=== PATIENT | female | born 1950 | race Caucasian/White ===

== ENCOUNTER 2017-01-21 12:57 | Inpatient (IN) ==
[2017-01-14 14:26] LABS: Basophils % 0.5 % (0.0-0.8); Eosinophils # 0.2 10*3/uL (0.0-0.87); Eosinophils % 2.4 % (0.00-10.9); Hematocrit 38.8 VOL% (35.7-47.0); Hemoglobin 13.9 GM/DL (12.0-16.0); Immature Granulocytes % 0.7 %; Immature Granulocytes Absolute 0.05 #; Lymphocytes # 2.2 10*3/uL (1.4-4.0); Mean Corpuscular HGB Conc 35.8 GM/DL (32-36); Mean Corpuscular Hemoglobin 29 PG (27-34); Mean Corpuscular Volume 81.9 FL (87-102); Mean Platelet Volume 9.5 FL (9.6-12.0); Monocytes # 0.5 10*3/uL (0.11-0.8); Monocytes % 6.7 % (1.7-12.7); Neutrophils # 4.5 10*3/uL (1.4-7.4); Neutrophils % 60.7 % (38.7-73.9); Platelet Count 190 T/CUMM (130-400); Red Blood Count 4.74 MC/CUMM (3.8-5.5); White Blood Count 7.4 T/CUMM (4-12)
[2017-01-14 15:22] LABS: Albumin 3.9 G/DL (3.4-5.0); Bilirubin,Direct 0.14 MG/DL (0.0-0.20); Bilirubin,Total 1.1 MG/DL (0.2-1.0); Calcium 9.1 MG/DL (8.5-10.1); Osmolality,Calculated 278.8 MOS/KG (273-304); Potassium 3.8 MMOL/L (3.5-5.1); Total Protein 7.2 G/DL (6.4-8.3)
[~2017-01-21 12:57] MED LIST: ASPIRIN 325 MG TABLET PO ONE; DIAZEPAM 5 MG TABLET PO ONE; MAGNESIUM SULF RIDER 2 GM in PREMIX 1 EACH IV PRN; POTASSIUM CHLORIDE RIDER 10 MEQ in PREMIX 1 EACH IV PRN; ceFAZolin 1,000 MG in SYRINGE 1 EACH IV ONE; diphenhydrAMINE CAP 50 MG CAPSULE PO ONE
[2017-01-21] MEDS ORDERED: diphenhydrAMINE CAP 25 MG CAPSULE PO ONE (13:00)
[2017-01-21 14:10] LABS: Basophils # 0.1 10*3/uL (0.0-0.2); Basophils % 0.6 % (0.0-0.8); Eosinophils # 0.2 10*3/uL (0.0-0.87); Eosinophils % 2.5 % (0.00-10.9); Hematocrit 40.5 VOL% (35.7-47.0); Hemoglobin 14.4 GM/DL (12.0-16.0); Immature Granulocytes % 0.6 %; Immature Granulocytes Absolute 0.05 #; Lymphocytes # 2.2 10*3/uL (1.4-4.0); Lymphocytes % 28.2 % (21.3-54.2); Mean Corpuscular HGB Conc 35.6 GM/DL (32-36); Mean Corpuscular Hemoglobin 29 PG (27-34); Mean Corpuscular Volume 81.8 FL (87-102); Mean Platelet Volume 9.6 FL (9.6-12.0); Monocytes # 0.6 10*3/uL (0.11-0.8); Neutrophils # 4.6 10*3/uL (1.4-7.4); Neutrophils % 60.1 % (38.7-73.9); Platelet Count 192 T/CUMM (130-400); Red Blood Count 4.95 MC/CUMM (3.8-5.5); Red Cell Distribution Width 13.2 % (9.3-17.3); White Blood Count 7.7 T/CUMM (4-12)
[2017-01-21 14:18] LABS: PT Patient Result 10.6 SECS
[2017-01-21 14:31] LABS: Calcium 9.2 MG/DL (8.5-10.1); Potassium 3.7 MMOL/L (3.5-5.1)
[2017-01-21] MEDS: SODIUM CHLORIDE 0.9% 1,000 ML IV SCH ×2 (15:00→22:06)
[2017-01-21] MEDS ORDERED: diphenhydrAMINE CAP 25 MG CAPSULE ONE (16:07)
[2017-01-21] MEDS ORDERED: DIAZEPAM 5 MG TABLET ONE (16:07)
[2017-01-21] MEDS ORDERED: ASPIRIN 325 MG TABLET ONE (16:07)
[2017-01-21] MEDS ORDERED: LIDOCAINE 1% 20 ML VIAL ONE (16:33)
[2017-01-21] MEDS ORDERED: HEPARIN/NACL 0.9% 2 UNITS/ML 500 ML IV ONE (16:33)
[2017-01-21] MEDS ORDERED: HYDROmorphone 2 MG/1 ML VIAL ONE (16:46)
[2017-01-21] MEDS ORDERED: MIDAZOLAM 2 MG/2 ML VIAL ONE (16:47)
[2017-01-21] MEDS ORDERED: LABETALOL 20 MG/4 ML SYRINGE IV ONE (17:19)
[2017-01-21] MEDS ORDERED: ONDANSETRON 4 MG/2 ML VIAL IV PRN (17:28)
[2017-01-21] MEDS ORDERED: BISACODYL 5 MG TABLET PO PRN (17:28)
[2017-01-21] MEDS ORDERED: guaiFENesin/DM ER 600-30 MG TABLET PO PRN (17:28)
[2017-01-21] MEDS ORDERED: ACETAMINOPHEN 325 MG TABLET PO PRN (17:28)
[2017-01-21] MEDS ORDERED: diphenhydrAMINE CAP 25 MG CAPSULE PO PRN (17:28)
[2017-01-21] MEDS ORDERED: ZALEPLON 5 MG CAPSULE PO PRN (17:28)
[2017-01-21] MEDS ORDERED: DEXTROSE 50% 25 GM/50 ML VIAL IV PRN (17:30)
[2017-01-21] MEDS ORDERED: GLUCAGON 1 MG VIAL IM PRN (17:30)
[2017-01-21] MEDS ORDERED: NITROGLYCERIN SL 0.4 MG TABLET SL PRN (17:30)
[2017-01-21] MEDS: ISOSORBIDE DINITRATE 10 MG TABLET PO SCH (22:05)
[2017-01-21] MEDS: ASPIRIN EC 81 MG TABLET PO SCH (22:05)
[2017-01-21] MEDS: CARVEDILOL 6.25 MG TABLET PO SCH (22:05)
[2017-01-21] MEDS: FAMOTIDINE 20 MG TABLET PO SCH (22:05)
[2017-01-21] MEDS: sitaGLIPtin 100 MG TABLET PO SCH (22:05)
[2017-01-21] MEDS: MULTIVITAMIN (BEROCCA) TABLET PO SCH (22:05)
[2017-01-22 05:42] LABS: Calcium 8.4 MG/DL (8.5-10.1); Osmolality,Calculated 281.5 MOS/KG (273-304); Potassium 4.1 MMOL/L (3.5-5.1); Risk Ratio 4.83
[2017-01-22] MEDS: SODIUM CHLORIDE 0.9% 1,000 ML IV SCH ×2 (06:32→14:01)
[2017-01-22] MEDS: ENOXAPARIN 40 MG/0.4 ML SYRINGE SUBCUT SCH (09:19)
[2017-01-22] MEDS: TRIAMCINOLONE 0.1% CREAM 15 GM TUBE TOP SCH (09:19)
[2017-01-22] MEDS: PANTOPRAZOLE 40 MG TABLET PO SCH (09:20)
[2017-01-22] MEDS: ROSUVASTATIN 10 MG TABLET PO SCH (09:20)
[2017-01-22] MEDS: ISOSORBIDE DINITRATE 10 MG TABLET PO SCH ×2 (09:20→21:24)
[2017-01-22] MEDS: CARVEDILOL 6.25 MG TABLET PO SCH ×2 (09:20→21:24)
[2017-01-22] MEDS: OMEGA 3 ACID ETHYL ESTERS 1 GM CAPSULE PO SCH (09:20)
[2017-01-22] MEDS: amLODIPine 5 MG TABLET PO SCH (09:20)
[2017-01-22] MEDS: COENZYME Q10 100 MG CAPSULE PO SCH (09:20)
[2017-01-22] MEDS: DOCUSATE SODIUM 100 MG CAPSULE PO PRN ×2 (09:20→21:24)
[2017-01-22] MEDS ORDERED: GLUCAGON 1 MG VIAL IM PRN ×2 (09:26→09:43)
[2017-01-22] MEDS ORDERED: DEXTROSE 50% 25 GM/50 ML VIAL IV PRN ×2 (09:26→09:43)
[2017-01-22] MEDS ORDERED: SODIUM CHLORIDE 0.9% 1,000 ML IV SCH (10:00)
[2017-01-22 10:25] LABS: ABG Base Excess 2.5 MMOL/L (-2.5-2.5); ABG HCO3 26.6 MMOL/L (20-26); ABG Oxygen Saturation 94.5 % (95-100); ABG PCO2 40.9 MM HG (35-48); ABG PH 7.428 (7.35-7.45); ABG PO2 69.7 MM HG (80-95); ABG TCO2 23.6 MMOL/L (23-27)
[2017-01-22] MEDS: hydroCHLOROthiazide 25 MG TABLET PO SCH (14:03)
[2017-01-22] MEDS: GLIMEPIRIDE 4 MG TABLET PO SCH (14:03)
[2017-01-22] MEDS: INSULIN LISPRO 100 UNIT/ML SUBCUT SCH ×3 (14:06→21:24)
[2017-01-22] MEDS ORDERED: CHLORHEXIDINE 4% SOLN 118 ML BOTTLE TOP SCH (15:00)
[2017-01-22] MEDS ORDERED: CHLORHEXIDINE 0.12% ORAL RINSE 60 ML BOTTLE SWISH/SPIT SCH (21:00)
[2017-01-22] MEDS: ASPIRIN EC 81 MG TABLET PO SCH (21:24)
[2017-01-22] MEDS: MULTIVITAMIN (BEROCCA) TABLET PO SCH (21:24)
[2017-01-22] MEDS: FAMOTIDINE 20 MG TABLET PO SCH (21:24)
[2017-01-22] MEDS: sitaGLIPtin 100 MG TABLET PO SCH (21:24)
[2017-01-22] MEDS: EZETIMIBE 10 MG TABLET PO SCH (21:24)
[2017-01-22] MEDS: CHLORHEXIDINE 0.12% ORAL RINSE 60 ML BOTTLE SWISH/SPIT SCH (21:25)
[2017-01-23 06:02] LABS: Basophils % 0.4 % (0.0-0.8); Eosinophils # 0.2 10*3/uL (0.0-0.87); Eosinophils % 2.6 % (0.00-10.9); Hematocrit 35.4 VOL% (35.7-47.0); Hemoglobin 12.3 GM/DL (12.0-16.0); Immature Granulocytes % 0.6 %; Immature Granulocytes Absolute 0.04 #; Lymphocytes # 2.1 10*3/uL (1.4-4.0); Lymphocytes % 30.7 % (21.3-54.2); Mean Corpuscular HGB Conc 34.7 GM/DL (32-36); Mean Corpuscular Hemoglobin 29 PG (27-34); Mean Corpuscular Volume 83.5 FL (87-102); Mean Platelet Volume 9.8 FL (9.6-12.0); Monocytes # 0.5 10*3/uL (0.11-0.8); Monocytes % 7.6 % (1.7-12.7); Neutrophils # 3.9 10*3/uL (1.4-7.4); Neutrophils % 58.1 % (38.7-73.9); Platelet Count 178 T/CUMM (130-400); Red Blood Count 4.24 MC/CUMM (3.8-5.5); Red Cell Distribution Width 13.2 % (9.3-17.3); White Blood Count 6.8 T/CUMM (4-12)
[2017-01-23 06:43] LABS: Calcium 8.6 MG/DL (8.5-10.1); Magnesium 2.2 MG/DL (1.8-2.4); Osmolality,Calculated 280.5 MOS/KG (273-304); Potassium 3.8 MMOL/L (3.5-5.1)
[2017-01-23] MEDS: INSULIN LISPRO 100 UNIT/ML SUBCUT SCH ×4 (08:57→22:13)
[2017-01-23] MEDS: ENOXAPARIN 40 MG/0.4 ML SYRINGE SUBCUT SCH (08:58)
[2017-01-23] MEDS: amLODIPine 5 MG TABLET PO SCH (08:58)
[2017-01-23] MEDS: ISOSORBIDE DINITRATE 10 MG TABLET PO SCH ×2 (08:58→22:13)
[2017-01-23] MEDS: CARVEDILOL 6.25 MG TABLET PO SCH ×2 (08:58→22:14)
[2017-01-23] MEDS: OMEGA 3 ACID ETHYL ESTERS 1 GM CAPSULE PO SCH (08:58)
[2017-01-23] MEDS: PANTOPRAZOLE 40 MG TABLET PO SCH (08:58)
[2017-01-23] MEDS: TRIAMCINOLONE 0.1% CREAM 15 GM TUBE TOP SCH (08:58)
[2017-01-23] MEDS: CHLORHEXIDINE 0.12% ORAL RINSE 60 ML BOTTLE SWISH/SPIT SCH ×2 (08:59→22:14)
[2017-01-23] MEDS: SODIUM CHLORIDE 0.9% 1,000 ML IV SCH (08:59)
[2017-01-23] MEDS: hydroCHLOROthiazide 25 MG TABLET PO SCH (12:31)
[2017-01-23] MEDS: GLIMEPIRIDE 4 MG TABLET PO SCH (12:31)
[2017-01-23] MEDS: FAMOTIDINE 20 MG TABLET PO SCH (22:13)
[2017-01-23] MEDS: CLORAZEPATE 3.75 MG TABLET PO PRN (22:13)
[2017-01-23] MEDS: MULTIVITAMIN (BEROCCA) TABLET PO SCH (22:13)
[2017-01-23] MEDS: ASPIRIN EC 81 MG TABLET PO SCH (22:14)
[2017-01-23] MEDS: EZETIMIBE 10 MG TABLET PO SCH (22:14)
[2017-01-23] MEDS: sitaGLIPtin 100 MG TABLET PO SCH (22:14)
[2017-01-24 06:20] LABS: Basophils % 0.6 % (0.0-0.8); Eosinophils # 0.2 10*3/uL (0.0-0.87); Hematocrit 35.1 VOL% (35.7-47.0); Hemoglobin 12.3 GM/DL (12.0-16.0); Immature Granulocytes % 0.6 %; Immature Granulocytes Absolute 0.04 #; Lymphocytes # 2.1 10*3/uL (1.4-4.0); Lymphocytes % 30.1 % (21.3-54.2); Mean Corpuscular Hemoglobin 29 PG (27-34); Mean Platelet Volume 10.2 FL (9.6-12.0); Monocytes # 0.6 10*3/uL (0.11-0.8); Monocytes % 8.4 % (1.7-12.7); Neutrophils % 57.3 % (38.7-73.9); Platelet Count 169 T/CUMM (130-400); Red Blood Count 4.23 MC/CUMM (3.8-5.5); Red Cell Distribution Width 13.2 % (9.3-17.3)
[2017-01-24 06:51] LABS: Calcium 8.4 MG/DL (8.5-10.1); Magnesium 2.1 MG/DL (1.8-2.4); Osmolality,Calculated 283.3 MOS/KG (273-304); Potassium 3.4 MMOL/L (3.5-5.1)
[2017-01-24] MEDS ORDERED: CEFUROXIME INJ 1,500 MG in SYRINGE 1 EACH IV ONE (09:26)
[2017-01-24] MEDS: amLODIPine 5 MG TABLET PO SCH ×2 (09:29→09:30)
[2017-01-24] MEDS: OMEGA 3 ACID ETHYL ESTERS 1 GM CAPSULE PO SCH (09:29)
[2017-01-24] MEDS: CARVEDILOL 6.25 MG TABLET PO SCH ×2 (09:29→21:40)
[2017-01-24] MEDS: ISOSORBIDE DINITRATE 10 MG TABLET PO SCH ×2 (09:29→21:38)
[2017-01-24] MEDS: PANTOPRAZOLE 40 MG TABLET PO SCH (09:30)
[2017-01-24] MEDS: SODIUM CHLORIDE 0.9% 1,000 ML IV SCH (09:43)
[2017-01-24] MEDS: INSULIN LISPRO 100 UNIT/ML SUBCUT SCH ×4 (09:45→22:30)
[2017-01-24] MEDS: GLIMEPIRIDE 4 MG TABLET PO SCH (14:03)
[2017-01-24] MEDS: hydroCHLOROthiazide 25 MG TABLET PO SCH (14:04)
[2017-01-24] MEDS: CHLORHEXIDINE 0.12% ORAL RINSE 60 ML BOTTLE SWISH/SPIT SCH ×2 (14:06→21:40)
[2017-01-24] MEDS: TRIAMCINOLONE 0.1% CREAM 15 GM TUBE TOP SCH (14:06)
[2017-01-24] MEDS: CLORAZEPATE 3.75 MG TABLET PO PRN ×2 (14:59→21:38)
[2017-01-24] MEDS: CHLORHEXIDINE 4% SOLN 118 ML BOTTLE TOP SCH ×2 (15:01→21:41)
[2017-01-24] MEDS: MULTIVITAMIN (BEROCCA) TABLET PO SCH (21:38)
[2017-01-24] MEDS: FAMOTIDINE 20 MG TABLET PO SCH (21:39)
[2017-01-24] MEDS: ASPIRIN EC 81 MG TABLET PO SCH (21:39)
[2017-01-24] MEDS: sitaGLIPtin 100 MG TABLET PO SCH (21:39)
[2017-01-24] MEDS: EZETIMIBE 10 MG TABLET PO SCH (21:40)
[2017-01-25] MEDS: CHLORHEXIDINE 4% SOLN 118 ML BOTTLE TOP SCH ×2 (04:30→08:07)
[2017-01-25 05:18] LABS: Basophils # 0.1 10*3/uL (0.0-0.2); Basophils % 0.6 % (0.0-0.8); Eosinophils # 0.3 10*3/uL (0.0-0.87); Eosinophils % 2.8 % (0.00-10.9); Hematocrit 36.1 VOL% (35.7-47.0); Hemoglobin 12.4 GM/DL (12.0-16.0); Immature Granulocytes % 0.9 %; Immature Granulocytes Absolute 0.08 #; Lymphocytes # 2.5 10*3/uL (1.4-4.0); Lymphocytes % 28.7 % (21.3-54.2); Mean Corpuscular HGB Conc 34.3 GM/DL (32-36); Mean Corpuscular Hemoglobin 28 PG (27-34); Mean Corpuscular Volume 82.4 FL (87-102); Mean Platelet Volume 10.1 FL (9.6-12.0); Monocytes # 0.8 10*3/uL (0.11-0.8); Monocytes % 8.5 % (1.7-12.7); Neutrophils # 5.1 10*3/uL (1.4-7.4); Neutrophils % 58.5 % (38.7-73.9); Platelet Count 179 T/CUMM (130-400); Red Blood Count 4.38 MC/CUMM (3.8-5.5); Red Cell Distribution Width 13.2 % (9.3-17.3); White Blood Count 8.8 T/CUMM (4-12)
[2017-01-25] MEDS ORDERED: PAPAVERINE 60 MG/2 ML VIAL ONE (05:25)
[2017-01-25] MEDS ORDERED: VANCOMYCIN 1,000 MG VIAL ONE (05:25)
[2017-01-25 05:50] LABS: Calcium 8.6 MG/DL (8.5-10.1); Osmolality,Calculated 283.3 MOS/KG (273-304); Potassium 3.2 MMOL/L (3.5-5.1)
[2017-01-25] MEDS ORDERED: DIAZEPAM 5 MG TABLET PO ONE (06:00)
[2017-01-25] MEDS ORDERED: FAMOTIDINE 20 MG TABLET PO ONE (06:00)
[2017-01-25] MEDS ORDERED: CEFUROXIME INJ 1,500 MG in SYRINGE 1 EACH IV ONE (07:00)
[2017-01-25] MEDS ORDERED: PHENYLEPHRINE DRIP 40 MG/250 ML PREMIX IV ONE (07:24)
[2017-01-25] MEDS ORDERED: NITROPRUSSIDE 50 MG/2 ML VIAL ONE (07:24)
[2017-01-25] MEDS ORDERED: ALBUMIN 5% 12.5 GM/250 ML VIAL IV ONE (07:25)
[2017-01-25] MEDS ORDERED: SODIUM BICARBONATE 50 MEQ/50 ML SYRINGE IV ONE ×2 (07:25→11:38)
[2017-01-25] MEDS ORDERED: CALCIUM CHLORIDE 1,000 MG/10 ML SYRINGE IV ONE (07:25)
[2017-01-25] MEDS ORDERED: POTASSIUM CHLORIDE RIDER 100 ML IV ONE (07:26)
[2017-01-25 07:41] LABS: ABG Base Excess 1.4 MMOL/L (-2.5-2.5); ABG HCO3 25.7 MMOL/L (20-26); ABG PCO2 42.3 MM HG (35-48); ABG PH 7.403 (7.35-7.45); ABG TCO2 23.3 MMOL/L (23-27); Glucose Heart Surgery 179 MG/DL (74-106); Hematocrit Heart Surgery 37.6 PERCENT (37-47); Hemoglobin Heart Surgery 12.2 G/DL (12.0-16.0); Ionized Calcium Arterial 1.13 MMOL/L (1.21-1.46); PCO2 Patient Temp Arterial 42.3 MMHG; PH Patient Temp Arterial 7.403; Patient Temperature 37 CELCIUS; Potassium Heart/CVR 3.4 MMOL/L (3.5-5.1); Sodium Heart/CVR 138 MMOL/L (135-145)
[2017-01-25] MEDS ORDERED: TRANEXAMIC ACID 1,000 MG/10 ML VIAL IV ONE ×2 (07:49→09:41)
[2017-01-25 07:53] LABS: Apearance,Urine CLEAR (Clear); Bilirubin,Urine Negative (Negative); Blood, Urine Negative (Negative); Glucose,Urine (UA) Negative (Negative); Ketones,Urine Negative (Negative); Mucus,Urine Occasional /LPF (Occasional); Nitrite,Urine Negative (Negative); Protein,Urine Negative; RBC,Urine <1 /HPF (0-4); Squamous Epithelial Cell,Urine Occasional /HPF (0-10); Urine Color Yellow (Yellow); Urine Specific Gravity 1.009 (1.001-1.035); Urine Urobilinogen < 2.0 EU/DL (0.2-1.0); WBC,Urine <1 /HPF (0-6)
[2017-01-25] MEDS: INSULIN LISPRO 100 UNIT/ML SUBCUT SCH ×2 (08:06→13:17)
[2017-01-25] MEDS: COENZYME Q10 100 MG CAPSULE PO SCH (08:06)
[2017-01-25] MEDS: OMEGA 3 ACID ETHYL ESTERS 1 GM CAPSULE PO SCH (08:07)
[2017-01-25] MEDS: amLODIPine 5 MG TABLET PO SCH (08:07)
[2017-01-25] MEDS: CARVEDILOL 6.25 MG TABLET PO SCH (08:07)
[2017-01-25] MEDS: ISOSORBIDE DINITRATE 10 MG TABLET PO SCH (08:07)
[2017-01-25] MEDS: TRIAMCINOLONE 0.1% CREAM 15 GM TUBE TOP SCH (08:07)
[2017-01-25] MEDS: ROSUVASTATIN 10 MG TABLET PO SCH ×2 (08:07→20:20)
[2017-01-25] MEDS: PANTOPRAZOLE 40 MG TABLET PO SCH (08:08)
[2017-01-25] MEDS: CHLORHEXIDINE 0.12% ORAL RINSE 60 ML BOTTLE SWISH/SPIT SCH (08:08)
[2017-01-25] MEDS ORDERED: INSULIN REGULAR DRIP 100 ML IV ONE (09:40)
[2017-01-25 09:57] LABS: PCO2 Patient Temp Venous 41.8 MM HG; PH Patient Temp Venous 7.447; Potassium Heart/CVR 4.1 MMOL/L (3.5-5.1); VBG Base Excess 3.8 MEQ/L (0-4); VBG HCO3 29.1 MEQ/L (24-28); VBG Oxygen Saturation 72.1 %; VBG PCO2 47.7 MMHG (41-51); VBG PH 7.403; VBG PO2 36.4 MMHG (17-40)
[2017-01-25 09:58] LABS: PO2 Patient Temp Venous 29.4 MM HG
[2017-01-25 10:20] LABS: Hematocrit Heart Surgery 28.4 PERCENT (37-47); Hemoglobin Heart Surgery 9.1 G/DL (12.0-16.0); PCO2 Patient Temp Venous 37.9 MM HG; PH Patient Temp Venous 7.456; PO2 Patient Temp Venous 30.6 MM HG; Potassium Heart/CVR 3.8 MMOL/L (3.5-5.1); VBG Base Excess 2.9 MEQ/L (0-4); VBG HCO3 26.6 MEQ/L (24-28); VBG PCO2 43.8 MMHG (41-51); VBG PH 7.412; VBG PO2 37.8 MMHG (17-40)
[2017-01-25 10:49] LABS: Hematocrit Heart Surgery 28.8 PERCENT (37-47); Hemoglobin Heart Surgery 9.3 G/DL (12.0-16.0); PCO2 Patient Temp Venous 41.6 MM HG; PH Patient Temp Venous 7.43; PO2 Patient Temp Venous 33.1 MM HG; Potassium Heart/CVR 4.7 MMOL/L (3.5-5.1); VBG Base Excess 3.1 MEQ/L (0-4); VBG HCO3 26.7 MEQ/L (24-28); VBG Oxygen Saturation 66.1 %; VBG PCO2 43.6 MMHG (41-51); VBG PH 7.415; VBG PO2 35.5 MMHG (17-40)
[2017-01-25] MEDS ORDERED: DEXTROSE 5% KCL 20 MEQ 20 MEQ/1,000 ML BAG IV ONE (11:38)
[2017-01-25] MEDS ORDERED: PROTAMINE SULFATE 250 MG/25 ML VIAL IV ONE (11:38)
[2017-01-25] MEDS ORDERED: HEPARIN 10,000 UNIT/10 ML VIAL ONE (11:38)
[2017-01-25] MEDS ORDERED: MAGNESIUM SULFATE 1 GM/2 ML VIAL ONE (11:38)
[2017-01-25] MEDS ORDERED: ALBUMIN 25% 25 GM/100 ML VIAL IV ONE (11:38)
[2017-01-25] MEDS ORDERED: methylPREDNISolone SOD SUC 1,000 MG/8 ML VIAL ONE (11:38)
[2017-01-25] MEDS ORDERED: POTASSIUM CHLORIDE 20 MEQ/10 ML VIAL ONE (11:39)
[2017-01-25] MEDS ORDERED: FUROSEMIDE 20 MG/2 ML VIAL ONE (11:39)
[2017-01-25] MEDS ORDERED: MANNITOL 12.5 GM/50 ML VIAL IV ONE (11:39)
[2017-01-25] MEDS ORDERED: THROMBIN TOPICAL (RECOMBINANT) 5,000 UNIT VIAL TOP ONE (11:47)
[2017-01-25 11:49] LABS: ABG Base Excess 1.9 MMOL/L (-2.5-2.5); ABG HCO3 26.1 MMOL/L (20-26); ABG Oxygen Saturation 99.2 % (95-100); ABG PCO2 37.9 MM HG (35-48); ABG PH 7.443 (7.35-7.45); ABG TCO2 23.7 MMOL/L (23-27); Glucose Heart Surgery 254 MG/DL (74-106); Hematocrit Heart Surgery 29.5 PERCENT (37-47); Hemoglobin Heart Surgery 9.5 G/DL (12.0-16.0); Ionized Calcium Arterial 1.15 MMOL/L (1.21-1.46); PCO2 Patient Temp Arterial 37.9 MMHG; PH Patient Temp Arterial 7.443; Patient Temperature 37 CELCIUS; Potassium Heart/CVR 3.8 MMOL/L (3.5-5.1); Sodium Heart/CVR 136 MMOL/L (135-145)
[2017-01-25] MEDS ORDERED: MIDAZOLAM 10 MG/2 ML VIAL ONE ×2 (12:38→13:21)
[2017-01-25] MEDS ORDERED: CALCIUM CHLORIDE 1,000 MG/10 ML SYRINGE IV PRN (12:42)
[2017-01-25] MEDS ORDERED: ONDANSETRON 4 MG/2 ML VIAL IV PRN (12:42)
[2017-01-25] MEDS ORDERED: DEXTROSE 50% 25 GM/50 ML VIAL IV PRN ×2 (12:42)
[2017-01-25] MEDS ORDERED: ACETAMINOPHEN 650 MG SUPP RECTAL PRN (12:42)
[2017-01-25] MEDS ORDERED: INSULIN REGULAR 100 UNIT/ML IV ONE (12:42)
[2017-01-25] MEDS ORDERED: PHENYLEPHRINE DRIP 40 MG/250 ML PREMIX IV PRN (12:42)
[2017-01-25] MEDS ORDERED: INSULIN REGULAR 100 UNIT/ML IV PRN (12:42)
[2017-01-25] MEDS ORDERED: VECURONIUM 10 MG VIAL IV PRN ×2 (12:42)
[2017-01-25] MEDS ORDERED: MAGNESIUM SULF RIDER 2 GM in PREMIX 1 EACH IV PRN (12:42)
[2017-01-25] MEDS ORDERED: MORPHINE 10 MG/1 ML VIAL IV PRN (12:42)
[2017-01-25] MEDS ORDERED: MAGNESIUM SULF RIDER 4 GM in PREMIX 1 EACH IV PRN (12:42)
[2017-01-25] MEDS ORDERED: MIDAZOLAM 2 MG/2 ML VIAL IV PRN (12:42)
[2017-01-25] MEDS ORDERED: NITROPRUSSIDE 100 MG in DEXTROSE 5% 250 ML IV PRN (12:42)
[2017-01-25] MEDS ORDERED: LACTATED RINGERS 250 ML IV PRN (12:42)
[2017-01-25] MEDS ORDERED: PROTAMINE SULFATE 50 MG/5 ML VIAL IV ONE ×2 (12:48→13:03)
[2017-01-25] MEDS ORDERED: SODIUM CHLORIDE 0.45% 1,000 ML IV SCH ×2 (13:00)
[2017-01-25] MEDS: LACTATED RINGERS 1,000 ML IV PRN ×4 (13:00→21:03)
[2017-01-25] MEDS: MIDAZOLAM 10 MG/2 ML VIAL IV PRN ×3 (13:08→13:37)
[2017-01-25 13:10] LABS: Basophils % 0.3 % (0.0-0.8); Eosinophils # 0.1 10*3/uL (0.0-0.87); Eosinophils % 0.6 % (0.00-10.9); Hematocrit 30.2 VOL% (35.7-47.0); Hemoglobin 10.6 GM/DL (12.0-16.0); Immature Granulocytes % 0.5 %; Immature Granulocytes Absolute 0.06 #; Lymphocytes # 1.3 10*3/uL (1.4-4.0); Lymphocytes % 10.2 % (21.3-54.2); Mean Corpuscular HGB Conc 35.1 GM/DL (32-36); Mean Corpuscular Hemoglobin 29 PG (27-34); Mean Corpuscular Volume 82.1 FL (87-102); Mean Platelet Volume 9.8 FL (9.6-12.0); Monocytes # 0.5 10*3/uL (0.11-0.8); Monocytes % 4.3 % (1.7-12.7); Neutrophils # 10.5 10*3/uL (1.4-7.4); Neutrophils % 84.1 % (38.7-73.9); Platelet Count 163 T/CUMM (130-400); Red Blood Count 3.68 MC/CUMM (3.8-5.5); Red Cell Distribution Width 13.2 % (9.3-17.3); White Blood Count 12.5 T/CUMM (4-12)
[2017-01-25] MEDS: GLIMEPIRIDE 4 MG TABLET PO SCH (13:17)
[2017-01-25] MEDS: hydroCHLOROthiazide 25 MG TABLET PO SCH (13:17)
[2017-01-25] MEDS ORDERED: SUFentanil 250 MCG/5 ML AMP ONE (13:20)
[2017-01-25] MEDS ORDERED: ePHEDrine 50 MG/ML AMP ONE (13:21)
[2017-01-25] MEDS ORDERED: HEPARIN/NACL 0.9% 2 UNITS/ML 500 ML IV ONE (13:22)
[2017-01-25] MEDS ORDERED: CALCIUM CHLORIDE 1,000 MG/10 ML VIAL IV ONE (13:22)
[2017-01-25] MEDS ORDERED: PHENYLEPHRINE DRIP 20 MG/250 ML PREMIX IV ONE (13:22)
[2017-01-25] MEDS ORDERED: LACTATED RINGERS 1,000 ML IV ONE ×2 (13:23→14:01)
[2017-01-25] MEDS ORDERED: NITROGLYCERIN DRIP 50 MG/250 ML BOTTLE IV ONE (13:23)
[2017-01-25] MEDS ORDERED: SEVOFLURANE 1 UNIT/15 MINUTE INH ONE (13:23)
[2017-01-25] MEDS ORDERED: SODIUM CHLORIDE 0.9% 100 ML IV ONE (13:23)
[2017-01-25] MEDS ORDERED: ETOMIDATE 20 MG/10 ML VIAL IV ONE (13:23)
[2017-01-25] MEDS ORDERED: SODIUM CHLORIDE 0.9% 500 ML IV ONE (13:23)
[2017-01-25] MEDS ORDERED: VECURONIUM 10 MG VIAL IV ONE (13:23)
[2017-01-25] MEDS ORDERED: SODIUM CHLORIDE 0.9% 1,000 ML IV ONE (13:23)
[2017-01-25 13:29] LABS: INR 1.1; Partial Thromboplastin Time 27.1 SECS (0-40)
[2017-01-25 13:33] LABS: ABG Base Excess 0.9 MMOL/L (-2.5-2.5); ABG HCO3 24.5 MMOL/L (20-26); ABG PCO2 35.8 MM HG (35-48); ABG PH 7.454 (7.35-7.45); ABG PO2 142.2 MM HG (80-95); ABG TCO2 25.6 MMOL/L (23-27)
[2017-01-25 13:34] LABS: Glucose Heart Surgery 225 MG/DL (74-106); Hemoglobin Heart Surgery 11.3 G/DL (12.0-16.0); Potassium Heart/CVR 3.9 MMOL/L (3.5-5.1)
[2017-01-25 13:40] LABS: Albumin 3.4 G/DL (3.4-5.0); Bilirubin,Total 1.4 MG/DL (0.2-1.0); Osmolality,Calculated 287.3 MOS/KG (273-304); Potassium 4.1 MMOL/L (3.5-5.1); Total Protein 5.6 G/DL (6.4-8.3)
[2017-01-25] MEDS: POTASSIUM CHLORIDE RIDER 20 MEQ in PREMIX 1 EACH IV PRN ×6 (13:45→21:01)
[2017-01-25] MEDS: MORPHINE 2 MG/1 ML SYRINGE IV PRN ×2 (13:49→18:38)
[2017-01-25] MEDS: KETOROLAC 30 MG/1 ML VIAL IV SCH ×2 (13:50→18:22)
[2017-01-25 13:55] LABS: CKMB % 6.3 %
[2017-01-25] MEDS: INSULIN REGULAR DRIP 100 ML IV SCH ×2 (13:59→23:11)
[2017-01-25] MEDS: POTASSIUM CHLORIDE RIDER 10 MEQ in PREMIX 1 EACH IV PRN ×3 (14:16→18:20)
[2017-01-25 14:36] LABS: Troponin I Only 3.14 NG/ML (0.00-0.045)
[2017-01-25 15:15] LABS: ABG Base Excess 1.2 MMOL/L (-2.5-2.5); ABG HCO3 25.5 MMOL/L (20-26); ABG Oxygen Saturation 99.1 % (95-100); ABG PCO2 37.9 MM HG (35-48); ABG PH 7.433 (7.35-7.45); ABG TCO2 22.8 MMOL/L (23-27); Glucose Heart Surgery 222 MG/DL (74-106); Hematocrit Heart Surgery 32.5 PERCENT (37-47); Hemoglobin Heart Surgery 10.5 G/DL (12.0-16.0); Potassium Heart/CVR 3.7 MMOL/L (3.5-5.1)
[2017-01-25] MEDS: ALBUMIN 5% 12.5 GM in PREMIX 1 EACH IV PRN ×4 (16:23→20:11)
[2017-01-25 17:12] LABS: ABG Base Excess 1.6 MMOL/L (-2.5-2.5); ABG HCO3 25.9 MMOL/L (20-26); ABG Oxygen Saturation 98.1 % (95-100); ABG PCO2 37.2 MM HG (35-48); ABG PH 7.446 (7.35-7.45); ABG PO2 99.2 MM HG (80-95); ABG TCO2 23.1 MMOL/L (23-27); Glucose Heart Surgery 206 MG/DL (74-106); Hematocrit Heart Surgery 31.6 PERCENT (37-47); Hemoglobin Heart Surgery 10.2 G/DL (12.0-16.0); Potassium Heart/CVR 3.5 MMOL/L (3.5-5.1)
[2017-01-25] MEDS ORDERED: PROPOFOL 1,000 MG/100 ML BOTTLE IV PRN (18:35)
[2017-01-25] MEDS ORDERED: FUROSEMIDE 40 MG/4 ML VIAL IV PRN (19:43)
[2017-01-25 20:04] LABS: ABG Base Excess 0.7 MMOL/L (-2.5-2.5); ABG HCO3 26.2 MMOL/L (20-26); ABG Oxygen Saturation 97.6 % (95-100); ABG PCO2 45.5 MM HG (35-48); ABG PH 7.378 (7.35-7.45); ABG PO2 122.7 MM HG (80-95); ABG TCO2 27.6 MMOL/L (23-27); Glucose Heart Surgery 186 MG/DL (74-106); Hemoglobin Heart Surgery 10.9 G/DL (12.0-16.0); Potassium Heart/CVR 3.1 MMOL/L (3.5-5.1)
[2017-01-25 20:29] LABS: CKMB % 3.4 %
[2017-01-25] MEDS ORDERED: CEFUROXIME INJ 1,500 MG in SYRINGE 1 EACH IV SCH (20:35)
[2017-01-25 20:38] LABS: Troponin I Only 2.72 NG/ML (0.00-0.045)
[2017-01-25] MEDS ORDERED: CHLORHEXIDINE 0.12% ORAL RINSE 60 ML BOTTLE SWISH/SPIT SCH (21:00)
[2017-01-25] MEDS ORDERED: METOPROLOL TARTRATE 25 MG TABLET PO SCH (21:00)
[2017-01-25 21:14] LABS: ABG Base Excess -0.6 MMOL/L (-2.5-2.5); ABG HCO3 23.9 MMOL/L (20-26); ABG Oxygen Saturation 97.9 % (95-100); ABG PCO2 46.6 MM HG (35-48); ABG PH 7.344 (7.35-7.45); ABG TCO2 23.3 MMOL/L (23-27); Glucose Heart Surgery 188 MG/DL (74-106); Hematocrit Heart Surgery 29.9 PERCENT (37-47); Hemoglobin Heart Surgery 9.7 G/DL (12.0-16.0)
[2017-01-26 00:19] LABS: ABG HCO3 25.4 MMOL/L (20-26); ABG Oxygen Saturation 95.4 % (95-100); ABG PCO2 44.8 MM HG (35-48); ABG PH 7.372 (7.35-7.45); ABG PO2 83.6 MM HG (80-95); ABG TCO2 26.8 MMOL/L (23-27); Glucose Heart Surgery 160 MG/DL (74-106); Hemoglobin Heart Surgery 10.1 G/DL (12.0-16.0); Potassium Heart/CVR 3.7 MMOL/L (3.5-5.1)
[2017-01-26] MEDS: POTASSIUM CHLORIDE RIDER 20 MEQ in PREMIX 1 EACH IV PRN ×2 (00:24→04:24)
[2017-01-26] MEDS: KETOROLAC 30 MG/1 ML VIAL IV SCH ×5 (00:25→20:35)
[2017-01-26] MEDS: POTASSIUM CHLORIDE RIDER 10 MEQ in PREMIX 1 EACH IV PRN ×2 (00:59→04:59)
[2017-01-26 04:16] LABS: ABG Base Excess 0.8 MMOL/L (-2.5-2.5); ABG HCO3 25.1 MMOL/L (20-26); ABG Oxygen Saturation 95.6 % (95-100); ABG PCO2 41.7 MM HG (35-48); ABG PH 7.398 (7.35-7.45); ABG PO2 76.8 MM HG (80-95); ABG TCO2 23.4 MMOL/L (23-27); Glucose Heart Surgery 124 MG/DL (74-106); Potassium Heart/CVR 3.9 MMOL/L (3.5-5.1)
[2017-01-26 04:29] LABS: Basophils % 0.2 % (0.0-0.8); Hemoglobin 10.2 GM/DL (12.0-16.0); Immature Granulocytes % 0.6 %; Immature Granulocytes Absolute 0.11 #; Lymphocytes # 0.9 10*3/uL (1.4-4.0); Lymphocytes % 4.9 % (21.3-54.2); Mean Corpuscular HGB Conc 35.2 GM/DL (32-36); Mean Corpuscular Hemoglobin 29 PG (27-34); Mean Corpuscular Volume 83.6 FL (87-102); Mean Platelet Volume 10.1 FL (9.6-12.0); Monocytes % 5.1 % (1.7-12.7); Neutrophils # 16.8 10*3/uL (1.4-7.4); Neutrophils % 89.2 % (38.7-73.9); Platelet Count 173 T/CUMM (130-400); Red Blood Count 3.47 MC/CUMM (3.8-5.5); Red Cell Distribution Width 13.3 % (9.3-17.3); White Blood Count 18.8 T/CUMM (4-12)
[2017-01-26 05:00] LABS: Bilirubin,Direct 0.19 MG/DL (0.0-0.20); Bilirubin,Total 0.7 MG/DL (0.2-1.0); Calcium 8.5 MG/DL (8.5-10.1); Magnesium 1.6 MG/DL (1.8-2.4); Osmolality,Calculated 278.4 MOS/KG (273-304); Potassium 4.1 MMOL/L (3.5-5.1); Total Protein 6.2 G/DL (6.4-8.3)
[2017-01-26 05:08] LABS: CKMB % 2.2 %; Troponin I Only 2.4 NG/ML (0.00-0.045)
[2017-01-26 05:46] LABS: Lymphocytes 8 % (20-55); Platelet Estimate Adequate; Segmented Neutrophils 90 % (50-85); Total Cells Counted 100
[2017-01-26] MEDS: MORPHINE 2 MG/1 ML SYRINGE IV PRN (06:26)
[2017-01-26] MEDS ORDERED: guaiFENesin/DM ER 600-30 MG TABLET PO PRN (06:47)
[2017-01-26] MEDS ORDERED: CLORAZEPATE 3.75 MG TABLET PO PRN (06:47)
[2017-01-26] MEDS ORDERED: MAGNESIUM SULF RIDER 4 GM in PREMIX 1 EACH IV PRN (07:23)
[2017-01-26] MEDS ORDERED: MAGNESIUM HYDROXIDE SUSP 30 ML UDCUP PO PRN (07:23)
[2017-01-26] MEDS ORDERED: POTASSIUM CHLORIDE 20 MEQ TABLET PO PRN (07:23)
[2017-01-26] MEDS ORDERED: DEXTROSE 50% 25 GM/50 ML VIAL IV PRN ×2 (07:23)
[2017-01-26] MEDS ORDERED: GLUCAGON 1 MG VIAL IM PRN ×2 (07:23)
[2017-01-26] MEDS ORDERED: MAGNESIUM SULF RIDER 2 GM in PREMIX 1 EACH IV PRN (07:23)
[2017-01-26] MEDS ORDERED: ACETAMINOPHEN 325 MG TABLET PO PRN (07:23)
[2017-01-26] MEDS ORDERED: ALUMINUM/MAGNES/SIMETH MAX STR 30 ML UDCUP PO PRN (07:23)
[2017-01-26] MEDS ORDERED: ONDANSETRON 4 MG/2 ML VIAL IV PRN (07:23)
[2017-01-26] MEDS: INSULIN REGULAR 100 UNIT/ML SUBCUT SCH ×4 (08:32→20:35)
[2017-01-26] MEDS: CARVEDILOL 6.25 MG TABLET PO SCH ×2 (08:38→22:23)
[2017-01-26] MEDS: SODIUM CHLOR 0.45% KCL 20 MEQ 20 MEQ/1,000 ML BAG IV SCH (08:38)
[2017-01-26] MEDS: amLODIPine 5 MG TABLET PO SCH (08:39)
[2017-01-26] MEDS: DOCUSATE SODIUM 100 MG CAPSULE PO SCH (08:39)
[2017-01-26] MEDS: OMEGA 3 ACID ETHYL ESTERS 1 GM CAPSULE PO SCH (08:39)
[2017-01-26] MEDS: PANTOPRAZOLE 40 MG TABLET PO SCH (08:39)
[2017-01-26] MEDS: CHLORHEXIDINE 0.12% ORAL RINSE 60 ML BOTTLE SWISH/SPIT SCH ×2 (08:40→22:24)
[2017-01-26] MEDS: FERROUS SULFATE 325 MG TABLET PO SCH (08:40)
[2017-01-26] MEDS ORDERED: CEFUROXIME INJ 1,500 MG in SYRINGE 1 EACH IV SCH (09:00)
[2017-01-26] MEDS: TRIAMCINOLONE 0.1% CREAM 15 GM TUBE TOP SCH (09:01)
[2017-01-26] MEDS: GLIMEPIRIDE 4 MG TABLET PO SCH (11:40)
[2017-01-26] MEDS: hydroCHLOROthiazide 25 MG TABLET PO SCH (11:40)
[2017-01-26] MEDS: oxyCODONE/ACETAMINOPHEN 5-325 MG TABLET PO PRN (17:20)
[2017-01-26] MEDS: sitaGLIPtin 100 MG TABLET PO SCH (22:23)
[2017-01-26] MEDS: ROSUVASTATIN 10 MG TABLET PO SCH (22:23)
[2017-01-26] MEDS: ASPIRIN EC 81 MG TABLET PO SCH (22:23)
[2017-01-26] MEDS: MULTIVITAMIN (BEROCCA) TABLET PO SCH (22:23)
[2017-01-26] MEDS: EZETIMIBE 10 MG TABLET PO SCH (22:23)
[2017-01-27] MEDS: INSULIN REGULAR 100 UNIT/ML SUBCUT SCH ×6 (01:03→21:40)
[2017-01-27] MEDS: KETOROLAC 30 MG/1 ML VIAL IV SCH ×4 (02:25→21:41)
[2017-01-27 05:01] LABS: Basophils % 0.1 % (0.0-0.8); Hematocrit 25.1 VOL% (35.7-47.0); Hemoglobin 8.5 GM/DL (12.0-16.0); Immature Granulocytes Absolute 0.17 #; Lymphocytes # 1.1 10*3/uL (1.4-4.0); Lymphocytes % 6.2 % (21.3-54.2); Mean Corpuscular HGB Conc 33.9 GM/DL (32-36); Mean Corpuscular Hemoglobin 30 PG (27-34); Mean Corpuscular Volume 87.2 FL (87-102); Mean Platelet Volume 10.2 FL (9.6-12.0); Monocytes # 1.1 10*3/uL (0.11-0.8); Monocytes % 6.5 % (1.7-12.7); Neutrophils # 14.6 10*3/uL (1.4-7.4); Neutrophils % 86.2 % (38.7-73.9); Platelet Count 151 T/CUMM (130-400); Red Blood Count 2.88 MC/CUMM (3.8-5.5); Red Cell Distribution Width 13.5 % (9.3-17.3); White Blood Count 16.9 T/CUMM (4-12)
[2017-01-27 05:40] LABS: Albumin 3.2 G/DL (3.4-5.0); Bilirubin,Direct 0.16 MG/DL (0.0-0.20); Bilirubin,Indirect 0.5 MG/DL (0.0-1.0); Bilirubin,Total 0.7 MG/DL (0.2-1.0); CKMB % 0.8 %; Calcium 7.7 MG/DL (8.5-10.1); Magnesium 2.4 MG/DL (1.8-2.4); Osmolality,Calculated 284.7 MOS/KG (273-304); Potassium 4.4 MMOL/L (3.5-5.1); Total Protein 5.4 G/DL (6.4-8.3)
[2017-01-27 05:59] LABS: Troponin I Only 0.978 NG/ML (0.00-0.045)
[2017-01-27] MEDS ORDERED: FUROSEMIDE 40 MG/4 ML VIAL IV ONE (06:00)
[2017-01-27] MEDS ORDERED: ROSUVASTATIN 10 MG TABLET PO SCH (09:00)
[2017-01-27] MEDS: COENZYME Q10 100 MG CAPSULE PO SCH (09:17)
[2017-01-27] MEDS: DOCUSATE SODIUM 100 MG CAPSULE PO SCH (09:17)
[2017-01-27] MEDS: PANTOPRAZOLE 40 MG TABLET PO SCH (09:18)
[2017-01-27] MEDS: OMEGA 3 ACID ETHYL ESTERS 1 GM CAPSULE PO SCH (09:18)
[2017-01-27] MEDS: amLODIPine 5 MG TABLET PO SCH (09:18)
[2017-01-27] MEDS: FERROUS SULFATE 325 MG TABLET PO SCH (09:18)
[2017-01-27] MEDS: CARVEDILOL 6.25 MG TABLET PO SCH ×2 (09:19→21:40)
[2017-01-27] MEDS: TRIAMCINOLONE 0.1% CREAM 15 GM TUBE TOP SCH (09:19)
[2017-01-27] MEDS: CHLORHEXIDINE 0.12% ORAL RINSE 60 ML BOTTLE SWISH/SPIT SCH ×2 (09:19→21:42)
[2017-01-27] MEDS: SODIUM CHLOR 0.45% KCL 20 MEQ 20 MEQ/1,000 ML BAG IV SCH (11:15)
[2017-01-27] MEDS: GLIMEPIRIDE 4 MG TABLET PO SCH (11:50)
[2017-01-27] MEDS: hydroCHLOROthiazide 25 MG TABLET PO SCH (11:50)
[2017-01-27] MEDS: MULTIVITAMIN (BEROCCA) TABLET PO SCH (21:39)
[2017-01-27] MEDS: ROSUVASTATIN 10 MG TABLET PO SCH (21:39)
[2017-01-27] MEDS: ASPIRIN EC 81 MG TABLET PO SCH (21:39)
[2017-01-27] MEDS: EZETIMIBE 10 MG TABLET PO SCH (21:39)
[2017-01-27] MEDS: sitaGLIPtin 100 MG TABLET PO SCH (21:40)
[2017-01-27] MEDS: INSULIN GLARGINE 100 UNIT/ML SUBCUT SCH (21:41)
[2017-01-28] MEDS: INSULIN REGULAR 100 UNIT/ML SUBCUT SCH ×5 (02:39→22:46)
[2017-01-28] MEDS: KETOROLAC 30 MG/1 ML VIAL IV SCH ×4 (02:50→20:26)
[2017-01-28 05:52] LABS: Basophils % 0.2 % (0.0-0.8); Eosinophils % 0.3 % (0.00-10.9); Hematocrit 25.4 VOL% (35.7-47.0); Hemoglobin 8.7 GM/DL (12.0-16.0); Immature Granulocytes % 1.2 %; Immature Granulocytes Absolute 0.15 #; Lymphocytes # 1.9 10*3/uL (1.4-4.0); Lymphocytes % 15.4 % (21.3-54.2); Mean Corpuscular HGB Conc 34.3 GM/DL (32-36); Mean Corpuscular Hemoglobin 30 PG (27-34); Mean Corpuscular Volume 86.4 FL (87-102); Mean Platelet Volume 10.2 FL (9.6-12.0); Monocytes % 8.5 % (1.7-12.7); Neutrophils # 9.2 10*3/uL (1.4-7.4); Neutrophils % 74.4 % (38.7-73.9); Platelet Count 156 T/CUMM (130-400); Red Blood Count 2.94 MC/CUMM (3.8-5.5); Red Cell Distribution Width 13.8 % (9.3-17.3); White Blood Count 12.3 T/CUMM (4-12)
[2017-01-28 06:30] LABS: Alanine Aminotransferase 34 U/L (13-56); Albumin 2.9 G/DL (3.4-5.0); Alkaline Phosphatase 59 U/L (45-117); Aspartate Amino Transferase 25 U/L (0-37); Bilirubin,Indirect 0.3 MG/DL (0.0-1.0); Blood Urea Nitrogen 23 MG/DL (7-18); Calcium 7.7 MG/DL (8.5-10.1); Glucose 109 MG/DL (74-106); Osmolality,Calculated 281.5 MOS/KG (273-304); Potassium 3.7 MMOL/L (3.5-5.1); Sodium 139 MMOL/L (136-145); Total Protein 5.4 G/DL (6.4-8.3)
[2017-01-28 06:33] LABS: Troponin I Only 0.587 NG/ML (0.00-0.045)
[2017-01-28 06:40] LABS: Calcium 7.6 MG/DL (8.5-10.1); Magnesium 2.4 MG/DL (1.8-2.4); Osmolality,Calculated 283.4 MOS/KG (273-304); Potassium 3.7 MMOL/L (3.5-5.1)
[2017-01-28] MEDS: CARVEDILOL 6.25 MG TABLET PO SCH (09:48)
[2017-01-28] MEDS: DOCUSATE SODIUM 100 MG CAPSULE PO SCH (09:48)
[2017-01-28] MEDS: amLODIPine 5 MG TABLET PO SCH (09:48)
[2017-01-28] MEDS: PANTOPRAZOLE 40 MG TABLET PO SCH (09:48)
[2017-01-28] MEDS: FERROUS SULFATE 325 MG TABLET PO SCH (09:48)
[2017-01-28] MEDS: OMEGA 3 ACID ETHYL ESTERS 1 GM CAPSULE PO SCH (09:49)
[2017-01-28] MEDS: CHLORHEXIDINE 0.12% ORAL RINSE 60 ML BOTTLE SWISH/SPIT SCH ×2 (09:50→20:30)
[2017-01-28] MEDS: TRIAMCINOLONE 0.1% CREAM 15 GM TUBE TOP SCH (09:51)
[2017-01-28] MEDS: GLIMEPIRIDE 4 MG TABLET PO SCH (11:36)
[2017-01-28] MEDS: hydroCHLOROthiazide 25 MG TABLET PO SCH (11:36)
[2017-01-28] MEDS: INSULIN GLARGINE 100 UNIT/ML SUBCUT SCH (20:25)
[2017-01-28] MEDS: EZETIMIBE 10 MG TABLET PO SCH (20:26)
[2017-01-28] MEDS: ROSUVASTATIN 10 MG TABLET PO SCH (20:26)
[2017-01-28] MEDS: MULTIVITAMIN (BEROCCA) TABLET PO SCH (20:26)
[2017-01-28] MEDS: CARVEDILOL 12.5 MG TABLET PO SCH (20:26)
[2017-01-28] MEDS: sitaGLIPtin 100 MG TABLET PO SCH (20:27)
[2017-01-28] MEDS: ASPIRIN EC 81 MG TABLET PO SCH (20:27)
[2017-01-28] MEDS: ZALEPLON 5 MG CAPSULE PO PRN (20:27)
[2017-01-29] MEDS: KETOROLAC 30 MG/1 ML VIAL IV SCH ×3 (04:50→09:29)
[2017-01-29 05:39] LABS: Basophils % 0.4 % (0.0-0.8); Eosinophils # 0.2 10*3/uL (0.0-0.87); Eosinophils % 1.8 % (0.00-10.9); Hematocrit 31.8 VOL% (35.7-47.0); Hemoglobin 10.7 GM/DL (12.0-16.0); Immature Granulocytes Absolute 0.16 #; Lymphocytes # 1.5 10*3/uL (1.4-4.0); Lymphocytes % 18.6 % (21.3-54.2); Mean Corpuscular HGB Conc 33.6 GM/DL (32-36); Mean Corpuscular Hemoglobin 29 PG (27-34); Monocytes # 0.7 10*3/uL (0.11-0.8); Monocytes % 8.3 % (1.7-12.7); NRBC # 0.02 10*3/uL; Neutrophils # 5.6 10*3/uL (1.4-7.4); Neutrophils % 68.9 % (38.7-73.9); Platelet Count 164 T/CUMM (130-400); Red Blood Count 3.74 MC/CUMM (3.8-5.5); Red Cell Distribution Width 13.5 % (9.3-17.3); White Blood Count 8.2 T/CUMM (4-12)
[2017-01-29] MEDS: INSULIN REGULAR 100 UNIT/ML SUBCUT SCH ×6 (05:43→21:29)
[2017-01-29 06:11] LABS: Calcium 7.8 MG/DL (8.5-10.1); Magnesium 2.3 MG/DL (1.8-2.4); Osmolality,Calculated 278.7 MOS/KG (273-304); Potassium 3.8 MMOL/L (3.5-5.1)
[2017-01-29] MEDS: PANTOPRAZOLE 40 MG TABLET PO SCH (09:29)
[2017-01-29] MEDS: FERROUS SULFATE 325 MG TABLET PO SCH (09:29)
[2017-01-29] MEDS: OMEGA 3 ACID ETHYL ESTERS 1 GM CAPSULE PO SCH (09:29)
[2017-01-29] MEDS: DOCUSATE SODIUM 100 MG CAPSULE PO SCH (09:29)
[2017-01-29] MEDS: CARVEDILOL 12.5 MG TABLET PO SCH ×2 (09:29→21:28)
[2017-01-29] MEDS: amLODIPine 5 MG TABLET PO SCH (09:29)
[2017-01-29] MEDS: COENZYME Q10 100 MG CAPSULE PO SCH (09:29)
[2017-01-29] MEDS: CHLORHEXIDINE 0.12% ORAL RINSE 60 ML BOTTLE SWISH/SPIT SCH ×2 (09:36→21:41)
[2017-01-29] MEDS: TRIAMCINOLONE 0.1% CREAM 15 GM TUBE TOP SCH (09:36)
[2017-01-29] MEDS: hydroCHLOROthiazide 25 MG TABLET PO SCH (12:14)
[2017-01-29] MEDS: GLIMEPIRIDE 4 MG TABLET PO SCH (12:15)
[2017-01-29] MEDS: oxyCODONE/ACETAMINOPHEN 5-325 MG TABLET PO PRN (15:08)
[2017-01-29] MEDS: MULTIVITAMIN (BEROCCA) TABLET PO SCH (21:28)
[2017-01-29] MEDS: ROSUVASTATIN 10 MG TABLET PO SCH (21:28)
[2017-01-29] MEDS: EZETIMIBE 10 MG TABLET PO SCH (21:28)
[2017-01-29] MEDS: INSULIN GLARGINE 100 UNIT/ML SUBCUT SCH (21:28)
[2017-01-29] MEDS: sitaGLIPtin 100 MG TABLET PO SCH (21:28)
[2017-01-29] MEDS: ASPIRIN EC 81 MG TABLET PO SCH (21:28)
[2017-01-29] MEDS: ZALEPLON 5 MG CAPSULE PO PRN ×2 (21:28→23:00)
[2017-01-30 05:51] LABS: Basophils % 0.3 % (0.0-0.8); Eosinophils # 0.3 10*3/uL (0.0-0.87); Eosinophils % 2.2 % (0.00-10.9); Hematocrit 27.8 VOL% (35.7-47.0); Hemoglobin 9.6 GM/DL (12.0-16.0); Immature Granulocytes % 2.6 %; Immature Granulocytes Absolute 0.33 #; Lymphocytes # 1.8 10*3/uL (1.4-4.0); Lymphocytes % 14.1 % (21.3-54.2); Mean Corpuscular HGB Conc 34.5 GM/DL (32-36); Mean Corpuscular Hemoglobin 29 PG (27-34); Mean Corpuscular Volume 84.5 FL (87-102); Mean Platelet Volume 10.3 FL (9.6-12.0); Monocytes # 1.3 10*3/uL (0.11-0.8); Monocytes % 10.1 % (1.7-12.7); NRBC # 0.04 10*3/uL; Neutrophils # 8.9 10*3/uL (1.4-7.4); Neutrophils % 70.7 % (38.7-73.9); Platelet Count 236 T/CUMM (130-400); Red Blood Count 3.29 MC/CUMM (3.8-5.5); Red Cell Distribution Width 13.7 % (9.3-17.3); White Blood Count 12.5 T/CUMM (4-12)
[2017-01-30 06:24] LABS: Alanine Aminotransferase 37 U/L (13-56); Albumin 3.1 G/DL (3.4-5.0); Alkaline Phosphatase 70 U/L (45-117); Aspartate Amino Transferase 18 U/L (0-37); Bilirubin,Indirect 1.1 MG/DL (0.0-1.0); Blood Urea Nitrogen 15 MG/DL (7-18); Calcium 7.9 MG/DL (8.5-10.1); Glucose 147 MG/DL (74-106); Magnesium 2.4 MG/DL (1.8-2.4); Osmolality,Calculated 273.1 MOS/KG (273-304); Sodium 135 MMOL/L (136-145); Total Protein 5.7 G/DL (6.4-8.3)
[2017-01-30 06:32] LABS: Troponin I Only 0.241 NG/ML (0.00-0.045)
[2017-01-30] MEDS: INSULIN REGULAR 100 UNIT/ML SUBCUT SCH ×4 (07:49→20:32)
[2017-01-30] MEDS: DOCUSATE SODIUM 100 MG CAPSULE PO SCH (09:20)
[2017-01-30] MEDS: FERROUS SULFATE 325 MG TABLET PO SCH (09:20)
[2017-01-30] MEDS: CARVEDILOL 12.5 MG TABLET PO SCH ×2 (09:20→21:43)
[2017-01-30] MEDS: PANTOPRAZOLE 40 MG TABLET PO SCH (09:20)
[2017-01-30] MEDS: oxyCODONE/ACETAMINOPHEN 5-325 MG TABLET PO PRN (09:20)
[2017-01-30] MEDS: amLODIPine 5 MG TABLET PO SCH (09:20)
[2017-01-30] MEDS: CHLORHEXIDINE 0.12% ORAL RINSE 60 ML BOTTLE SWISH/SPIT SCH ×2 (09:21→21:43)
[2017-01-30] MEDS: OMEGA 3 ACID ETHYL ESTERS 1 GM CAPSULE PO SCH (09:21)
[2017-01-30] MEDS: TRIAMCINOLONE 0.1% CREAM 15 GM TUBE TOP SCH (09:22)
[2017-01-30] MEDS: hydroCHLOROthiazide 25 MG TABLET PO SCH ×2 (12:28→12:34)
[2017-01-30] MEDS: GLIMEPIRIDE 4 MG TABLET PO SCH (12:34)
[2017-01-30] MEDS: EZETIMIBE 10 MG TABLET PO SCH (21:42)
[2017-01-30] MEDS: ROSUVASTATIN 10 MG TABLET PO SCH (21:42)
[2017-01-30] MEDS: ZALEPLON 5 MG CAPSULE PO PRN (21:42)
[2017-01-30] MEDS: MULTIVITAMIN (BEROCCA) TABLET PO SCH (21:42)
[2017-01-30] MEDS: sitaGLIPtin 100 MG TABLET PO SCH (21:43)
[2017-01-30] MEDS: ASPIRIN EC 81 MG TABLET PO SCH (21:43)
[2017-01-30] MEDS: INSULIN GLARGINE 100 UNIT/ML SUBCUT SCH (21:43)
[2017-01-30] MEDS: tiZANidine 4 MG TABLET PO PRN (21:43)
[2017-01-31 04:49] LABS: Basophils % 0.3 % (0.0-0.8); Eosinophils # 0.3 10*3/uL (0.0-0.87); Eosinophils % 2.1 % (0.00-10.9); Hemoglobin 9.3 GM/DL (12.0-16.0); Immature Granulocytes % 3.8 %; Immature Granulocytes Absolute 0.53 #; Lymphocytes # 2.5 10*3/uL (1.4-4.0); Lymphocytes % 17.4 % (21.3-54.2); Mean Corpuscular HGB Conc 34.4 GM/DL (32-36); Mean Corpuscular Hemoglobin 29 PG (27-34); Mean Corpuscular Volume 82.8 FL (87-102); Mean Platelet Volume 10.3 FL (9.6-12.0); Monocytes # 1.4 10*3/uL (0.11-0.8); Monocytes % 10.1 % (1.7-12.7); NRBC # 0.04 10*3/uL; Neutrophils # 9.3 10*3/uL (1.4-7.4); Neutrophils % 66.3 % (38.7-73.9); Platelet Count 269 T/CUMM (130-400); Red Blood Count 3.26 MC/CUMM (3.8-5.5); Red Cell Distribution Width 13.9 % (9.3-17.3); White Blood Count 14.1 T/CUMM (4-12)
[2017-01-31 05:18] LABS: Alanine Aminotransferase 31 U/L (13-56); Alkaline Phosphatase 73 U/L (45-117); Aspartate Amino Transferase 15 U/L (0-37); Bilirubin,Indirect 0.7 MG/DL (0.0-1.0); Blood Urea Nitrogen 13 MG/DL (7-18); Calcium 8.1 MG/DL (8.5-10.1); Calcium 8.3 MG/DL (8.5-10.1); Glucose 144 MG/DL (74-106); Magnesium 2.2 MG/DL (1.8-2.4); Magnesium 2.3 MG/DL (1.8-2.4); Osmolality,Calculated 262.8 MOS/KG (273-304); Osmolality,Calculated 268.4 MOS/KG (273-304); Potassium 4.1 MMOL/L (3.5-5.1); Sodium 130 MMOL/L (136-145); Total Protein 5.8 G/DL (6.4-8.3)
[2017-01-31 05:24] LABS: Troponin I Only 0.281 NG/ML (0.00-0.045)
[2017-01-31 06:33] LABS: Hypochromasia 1+
[2017-01-31] MEDS: CARVEDILOL 12.5 MG TABLET PO SCH ×2 (09:28→22:06)
[2017-01-31] MEDS: DOCUSATE SODIUM 100 MG CAPSULE PO SCH (09:28)
[2017-01-31] MEDS: FERROUS SULFATE 325 MG TABLET PO SCH (09:28)
[2017-01-31] MEDS: PANTOPRAZOLE 40 MG TABLET PO SCH (09:28)
[2017-01-31] MEDS: INSULIN REGULAR 100 UNIT/ML SUBCUT SCH ×4 (09:29→22:08)
[2017-01-31] MEDS: amLODIPine 5 MG TABLET PO SCH (09:29)
[2017-01-31] MEDS: CHLORHEXIDINE 0.12% ORAL RINSE 60 ML BOTTLE SWISH/SPIT SCH ×2 (09:29→22:07)
[2017-01-31] MEDS: OMEGA 3 ACID ETHYL ESTERS 1 GM CAPSULE PO SCH (09:29)
[2017-01-31] MEDS: TRIAMCINOLONE 0.1% CREAM 15 GM TUBE TOP SCH (09:29)
[2017-01-31] MEDS: GLIMEPIRIDE 4 MG TABLET PO SCH (11:28)
[2017-01-31] MEDS: hydroCHLOROthiazide 25 MG TABLET PO SCH ×2 (11:28→11:29)
[2017-01-31] MEDS: INSULIN GLARGINE 100 UNIT/ML SUBCUT SCH (22:04)
[2017-01-31] MEDS: ROSUVASTATIN 10 MG TABLET PO SCH (22:05)
[2017-01-31] MEDS: ZALEPLON 5 MG CAPSULE PO PRN (22:05)
[2017-01-31] MEDS: sitaGLIPtin 100 MG TABLET PO SCH (22:06)
[2017-01-31] MEDS: ASPIRIN EC 81 MG TABLET PO SCH (22:06)
[2017-01-31] MEDS: tiZANidine 4 MG TABLET PO PRN (22:06)
[2017-01-31] MEDS: oxyCODONE/ACETAMINOPHEN 5-325 MG TABLET PO PRN (22:06)
[2017-01-31] MEDS: MULTIVITAMIN (BEROCCA) TABLET PO SCH (22:06)
[2017-01-31] MEDS: EZETIMIBE 10 MG TABLET PO SCH (22:08)
[2017-02-01] MEDS ORDERED: ONDANSETRON 4 MG TABLET PO PRN (08:22)
[2017-02-01] MEDS: INSULIN REGULAR 100 UNIT/ML SUBCUT SCH ×2 (09:10→12:07)
[2017-02-01] MEDS: PANTOPRAZOLE 40 MG TABLET PO SCH (09:11)
[2017-02-01] MEDS: DOCUSATE SODIUM 100 MG CAPSULE PO SCH (09:11)
[2017-02-01] MEDS: CARVEDILOL 12.5 MG TABLET PO SCH (09:11)
[2017-02-01] MEDS: COENZYME Q10 100 MG CAPSULE PO SCH (09:11)
[2017-02-01] MEDS: FERROUS SULFATE 325 MG TABLET PO SCH (09:11)
[2017-02-01] MEDS: TRIAMCINOLONE 0.1% CREAM 15 GM TUBE TOP SCH (09:12)
[2017-02-01] MEDS: OMEGA 3 ACID ETHYL ESTERS 1 GM CAPSULE PO SCH (09:12)
[2017-02-01] MEDS: CHLORHEXIDINE 0.12% ORAL RINSE 60 ML BOTTLE SWISH/SPIT SCH (09:12)
[2017-02-01] MEDS: amLODIPine 5 MG TABLET PO SCH (09:12)
[2017-02-01 11:45] VITALS: BP 146/60
[2017-02-01] MEDS: GLIMEPIRIDE 4 MG TABLET PO SCH (12:08)
[2017-02-01] MEDS: hydroCHLOROthiazide 25 MG TABLET PO SCH ×2 (12:13)
== END 2017-02-01 13:24 | disposition home health service (06) | DRG 234 ==
LOC: N.CL 12:57 → N.TELEN 17:23 → N.CVR 01-25 12:37 → N.TELES 01-26 12:19
PROVIDERS: ADMIT Internal Medicine Cardiovascular Disease; ATTEND Internal Medicine Cardiovascular Disease